=== PATIENT | female | born 1995 ===

== ENCOUNTER 2021-05-03 19:24 | Inpatient (IN) | payer BC ==
[2021-05-03] MEDS ORDERED: Water For Irrigation,Sterile 1,000 ML Container IRR PRN (19:28)
[2021-05-03] MEDS ORDERED: Sodium Chloride 0.9% 10 ML Syringe FLUSH PRN (19:28)
[2021-05-03] MEDS ORDERED: Tranexamic Acid 1,000 MG in Sodium Chloride 0.9% 100 ML IV PRN (19:28)
[2021-05-03] MEDS ORDERED: Methylergonovine 0.2 MG/1 ML Amp IM PRN (19:28)
[2021-05-03] MEDS ORDERED: Sodium Chloride 0.9% 2.5 ML Syringe FLUSH PRN (19:28)
[2021-05-03] MEDS ORDERED: Misoprostol 25 MCG (1/4 of 100 MCG) Tab VAG PRN ×2 (19:28)
[2021-05-03] MEDS ORDERED: Carboprost Tromethamine 250 MCG/1 ML Amp IM PRN (19:28)
[2021-05-03] MEDS ORDERED: Nalbuphine 10 MG/1 ML Vial IVPUSH PRN (19:28)
[2021-05-03] MEDS ORDERED: Misoprostol 200 MCG Tab PO PRN (19:28)
[2021-05-03] MEDS ORDERED: Lidocaine 1% 50 ML MDV INJECT PRN (19:28)
[2021-05-03] MEDS ORDERED: Sodium Chloride 0.9% 10 ML SDV IV PRN (19:28)
[2021-05-03] MEDS ORDERED: Terbutaline 1 MG/ML SDV SUBCUT PRN (19:28)
[2021-05-03] MEDS ORDERED: Oxytocin/0.9 % Sodium Chloride 30 UNIT/500 ML BAG IV SCH ×2 (19:30)
[2021-05-03] MEDS ORDERED: Lactated Ringers 1,000 ML IV SCH (19:30)
--- NOTE | 2021-05-03 19:48 | PCM.LDHP ---
L&D History of Present Illness - General Date of Service: 05/03/21 Admit Problem/Dx: Patient Status Order with Admit Dx/Problem 05/03/21 19:28 Patient Status [ADT] Routine Admission Diagnosis/Problem Admission Diagnosis/Problem 05/03/21 19:43 25 yo presenting to L&D for induction of labor at 41 1/7 weeks (TRAVIS: 04/25/21 by LMP and US). O+, Rubella immune, GBS negative. Upon presentation, SVE noted vertex presentation, 2-3cm/80%/-2. 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: Neurological History: Reports: Migraines - Infectious Disease History Infectious Disease History: Reports: Mononucleosis Social & Family History - Family History OBGYN: Reports: - Caffeine Use Caffeine Use: Reports: Soda Caffeine Use Comment: Less than 4 per week H&P Review of Systems - Review of Systems: Review Of Systems: See Below General: Reports: No Symptoms HEENT: Reports: No Symptoms Pulmonary: Reports: No Symptoms Cardiovascular: Reports: No Symptoms Gastrointestinal: Reports: No Symptoms Genitourinary: Reports: No Symptoms Musculoskeletal: Reports: No Symptoms Skin: Reports: No Symptoms Psychiatric: Reports: No Symptoms Neurological: Reports: No Symptoms Hematologic/Lymphatic: Reports: No Symptoms Immunologic: Reports: No Symptoms L&D Exam - Exam Exam: See Below - OB Specific Movement: Active Heart Tones: Present Heart Rate (FHR) Variability: Moderate (6-25 bpm) Presentation: Vertex - Bobby Score Bobby Score Cervix Position: Midposition Bobby Score Consistency: Soft Bobby Score Effacement: >80% Bobby Score Dilation: 3-4 cm Bobby Score 's Station: -2 Bobby Score Total: 9 - Exam General: Alert, Oriented, Cooperative Lungs: Normal Respiratory Effort Cardiovascular: Regular Rate, Regular Rhythm GI/Abdominal Exam: Soft, Non-Tender Rectal Exam: Deferred Genitourinary: Deferred Back Exam: Normal Inspection, Full Range of Motion Extremities: Normal Inspection, Normal Range of Motion, Non-Tender, Normal Capillary Refill Skin: Warm, Dry, Intact Neurological: Strength Equal Bilateral, Normal Gait, Normal Speech, Normal Tone, Sensation Intact Psychiatric: Alert, Normal Affect, Normal Mood - Problem List (1) Supervision of normal IUP (intrauterine ) in multigravida SNOMED Code(s): 250920382, 739552140, [id number] ICD Code: Z34.90 - ENCNTR FOR SUPRVSN OF NORMAL , UNSP, UNSP TRIMESTER Status: Acute Priority: High Current Visit: No Qualifiers: Trimester: third trimester Qualified Code(s): Z34.83 - Encounter for supervision of other normal , third trimester Problem List Initiated/Reviewed/Updated: Yes Orders Last 24hrs: Active Orders 24 hr Category Date Time Status Patient Status [ADT] Routine ADT 05/03/21 19:28 Active Bedrest Bathroom Privileges [RC] ASDIRECTED Care 05/03/21 19:28 Active Communication Order [RC] ASDIRECTED Care 05/03/21 19:28 Active Communication Order [RC] ASDIRECTED Care 05/03/21 19:28 Active Communication Order [RC] ASDIRECTED Care 05/03/21 19:28 Active Heart Tones [RC] CONTINUOUS Care 05/03/21 19:28 Active Non Stress Test [RC] PER UNIT ROUTINE Care 05/03/21 19:28 Active May Shower [RC] ASDIRECTED Care 05/03/21 19:28 Active Notify Provider [RC] PRN Care 05/03/21 19:28 Active Notify Provider [RC] PRN Care 05/03/21 19:28 Active Notify Provider [RC] PRN Care 05/03/21 19:28 Active Notify Provider [RC] STAT Care 05/03/21 19:28 Active Oxygen Therapy [RC] ASDIRECTED Care 05/03/21 19:28 Active Up ad Amie [RC] ASDIRECTED Care 05/03/21 19:28 Active Vaginal Exam [RC] PRN Care 05/03/21 19:28 Active Vaginal Exam [RC] PRN Care 05/03/21 19:28 Active Vital Signs [RC] PER UNIT ROUTINE Care 05/03/21 19:28 Active CBC W/O DIFF,HEMOGRAM [HEME] Routine Lab 05/03/21 19:28 Ordered RPR (SYPHILIS SERO) W/ RFLX [REF] Routine Lab 05/03/21 19:28 Ordered TYPE AND SCREEN [BBK] Routine Lab 05/03/21 19:28 Ordered Carboprost Tromethamine [Hemabate DS] Med 05/03/21 19:28 Active 250 mcg IM ASDIRECTED PRN Lactated Ringers [Ringers, Lactated] 1,000 ml Med 05/03/21 19:30 Active IV ASDIRECTED Lidocaine 1% [Xylocaine 1%] Med 05/03/21 19:28 Active 50 ml INJECT ONETIME PRN Methylergonovine [Methergine] Med 05/03/21 19:28 Active 0.2 mg IM ASDIRECTED PRN Nalbuphine [Nubain] Med 05/03/21 19:28 Active 10 mg IVPUSH Q1H PRN Oxytocin/0.9 % Sodium Chloride [Oxytocin 30 Unit/500 ML Med 05/03/21 19:30 Active -NS] 30 unit in 500 ml IV TITRATE Oxytocin/0.9 % Sodium Chloride [Oxytocin 30 Unit/500 ML Med 05/03/21 19:30 Active -NS] 30 unit in 500 ml IV TITRATE Sodium Chloride 0.9% [Normal Saline] Med 05/03/21 19:28 Active 10 ml IV ASDIRECTED PRN Sodium Chloride 0.9% [Saline Flush] Med 05/03/21 19:28 Active 10 ml FLUSH ASDIRECTED PRN Sodium Chloride 0.9% [Saline Flush] Med 05/03/21 19:28 Active 2.5 ml FLUSH ASDIRECTED PRN Terbutaline [Brethine] Med 05/03/21 19:28 Active 0.25 mg SUBCUT ASDIRECTED PRN Tranexamic Acid [Cyklokapron] 1,000 mg Med 05/03/21 19:28 Active Sodium Chloride 0.9% [Normal Saline] 100 ml IV ONETIME Water For Irrigation,Sterile [Sterile Water for Med 05/03/21 19:28 Active Irrigation] 1,000 ml IRR ASDIRECTED PRN miSOPROStoL [Cytotec] Med 05/03/21 19:28 Active 200 mcg PO ONETIME PRN miSOPROStoL [Cytotec] Med 05/03/21 19:28 Active 25 mcg VAG ONETIME PRN miSOPROStoL [Cytotec] Med 05/03/21 19:28 Active 25 mcg VAG Q4H PRN Scalp Electrode [WOMSER] Per Unit Routine Ot 05/03/21 19:28 Ordered Medication Administration Instruction [OM.PC] Q3H Ot 05/03/21 19:30 Ordered Peripheral IV Insertion Adult [OM.PC] Routine Ot 05/03/21 19:28 Ordered Resuscitation Status Routine Resus Stat 05/03/21 19:28 Ordered Medication Orders Carboprost Tromethamine (Carboprost Tromethamine 250 Mcg/1 Ml Amp) 250 mcg IM ASDIRECTED PRN PRN Reason: Post Hemorrhage Oxytocin/Sodium Chloride (Oxytocin 30 Unit/500 Ml-Ns) 30 unit in 500 mls @ 999 mls/hr IV TITRATE ELA Tranexamic Acid 1,000 mg/ (Sodium Chloride) 110 mls @ 660 mls/hr IV ONETIME PRN PRN Reason: Bleeding Oxytocin/Sodium Chloride (Oxytocin 30 Unit/500 Ml-Ns) 30 unit in 500 mls @ 2 mls/hr IV TITRATE ELA; Protocol Lactated Ringer's (Ringers, Lactated) 1,000 mls @ 150 mls/hr IV ASDIRECTED ELA Lidocaine HCl (Lidocaine 1% 50 Ml Mdv) 50 ml INJECT ONETIME PRN PRN Reason: Laceration repair Methylergonovine Maleate (Methylergonovine 0.2 Mg/1 Ml Amp) 0.2 mg IM ASDIRECTED PRN PRN Reason: Post Hemorrhage Misoprostol (Misoprostol 200 Mcg Tab) 200 mcg PO ONETIME PRN PRN Reason: Post Hemorrhage Misoprostol (Misoprostol 25 Mcg (1/4 Of 100 Mcg) Tab) 25 mcg VAG ONETIME PRN PRN Reason: Cervical Ripening Misoprostol (Misoprostol 25 Mcg (1/4 Of 100 Mcg) Tab) 25 mcg VAG Q4H PRN PRN Reason: Cervical Ripening Nalbuphine HCl (Nalbuphine 10 Mg/1 Ml Vial) 10 mg IVPUSH Q1H PRN PRN Reason: Pain (severe 7-10) Sodium Chloride (Sodium Chloride 0.9% 10 Ml Syringe) 10 ml FLUSH ASDIRECTED PRN PRN Reason: Keep Vein Open Sodium Chloride (Sodium Chloride 0.9% 2.5 Ml Syringe) 2.5 ml FLUSH ASDIRECTED PRN PRN Reason: Keep Vein Open Sodium Chloride (Sodium Chloride 0.9% 10 Ml Sdv) 10 ml IV ASDIRECTED PRN PRN Reason: IV Use Sterile Water (Water For Irrigation,Sterile 1,000 Ml Container) 1,000 ml IRR ASDIRECTED PRN PRN Reason: delivery Terbutaline Sulfate (Terbutaline 1 Mg/Ml Sdv) 0.25 mg SUBCUT ASDIRECTED PRN PRN Reason: Tacysystole Assessment/Plan Comment:: Admit A: 25 yo presenting to L&D for induction of labor at 41 1/7 weeks (TRAVIS: 04/25/21 by LMP and US). O+, Rubella immune, GBS negative. Upon presentation, SVE noted vertex presentation, 2-3cm/80%/-2. P: Anticipate ; cytotec to pitocin PRN; epidural PRN; Dr. Galeas updated.
[2021-05-03] MEDS ORDERED: Misoprostol 25 MCG (1/4 of 100 MCG) Tab PO ONE (20:47)
[2021-05-03] MEDS ORDERED: Ropivacaine HCl/PF 200 ML ONE (23:23)
[2021-05-03] MEDS ORDERED: Bupivacaine 0.25% 10 ML SDV ONE (23:23)
--- NOTE | 2021-05-04 00:11 | PCM.PREANE ---
Preanesthetic Assessment - Anesthesia/Transfusion/Family Hx Anesthesia History: No Prior Anesthesia Family History of Anesthesia Reaction: No Transfusion History: No Prior Transfusion(s) - Physical Assessment Height: 5 ft 3 in Weight: 170 lb ASA Class: 2 Airway Class: Mallampati = 3 - Lab Values: Laboratory Last Values WBC 11.05 K/uL (4.0-11.0) H 05/03/21 20:50 RBC 3.93 M/uL (4.30-5.90) L 05/03/21 20:50 Hgb 11.0 g/dL (12.0-16.0) L 05/03/21 20:50 Hct 33.4 % (36.0-46.0) L 05/03/21 20:50 MCV 85.0 fL (80.0-98.0) 05/03/21 20:50 MCH 28.0 pg (27.0-32.0) 05/03/21 20:50 MCHC 32.9 g/dL (31.0-37.0) 05/03/21 20:50 RDW Std Deviation 41.3 fl (28.0-62.0) 05/03/21 20:50 RDW Coeff of [place] 13 % (11.0-15.0) 05/03/21 20:50 Plt Count 240 K/uL (150-400) 05/03/21 20:50 MPV 11.10 fL (7.40-12.00) 05/03/21 20:50 Nucleated RBC % 0.0 /100WBC 05/03/21 20:50 Nucleated RBCs # 0 K/uL 05/03/21 20:50 SARS-CoV-2 RNA (ACE) NEGATIVE (NEGATIVE) 05/03/21 20:42 Blood Type O POSITIVE 05/03/21 20:50 Antibody Screen NEGATIVE 05/03/21 20:50 - Allergies Allergies/Adverse Reactions: Allergies Allergy/AdvReac Type Severity Reaction Status Date / Time cranberry Allergy Swelling Verified 05/15/15 01:46 - Blood Blood Available: Yes Product(s) Available: PRBC - Anesthesia Plan Pre-Op Medication Ordered: None - Acknowledgements Anesthesia Type Planned: Epidural Pt an Appropriate Candidate for the Planned Anesthesia: Yes Alternatives and Risks of Anesthesia Discussed w Pt/Guardian: Yes Pt/Guardian Understands and Agrees with Anesthesia Plan: Yes PreAnesthesia Questionnaire - Past Health History Medical/Surgical History: Denies 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: Neurological History: Reports: Migraines - Infectious Disease History Infectious Disease History: Reports: Mononucleosis - SUBSTANCE USE Tobacco Use Status *Q: Never Tobacco User Tobacco Use Within Last Twelve Months: No Second Hand Smoke Exposure: No Recreational Drug Use History: No - CURRENT (IN HOUSE) MEDS Current Meds: Current Medications Carboprost Tromethamine (Carboprost Tromethamine 250 Mcg/1 Ml Amp) 250 mcg IM ASDIRECTED PRN PRN Reason: Post Hemorrhage Oxytocin/Sodium Chloride (Oxytocin 30 Unit/500 Ml-Ns) 30 unit in 500 mls @ 999 mls/hr IV TITRATE ELA Tranexamic Acid 1,000 mg/ (Sodium Chloride) 110 mls @ 660 mls/hr IV ONETIME PRN PRN Reason: Bleeding Oxytocin/Sodium Chloride (Oxytocin 30 Unit/500 Ml-Ns) 30 unit in 500 mls @ 2 mls/hr IV TITRATE ELA; Protocol Lactated Ringer's (Ringers, Lactated) 1,000 mls @ 150 mls/hr IV ASDIRECTED ELA Lidocaine HCl (Lidocaine 1% 50 Ml Mdv) 50 ml INJECT ONETIME PRN PRN Reason: Laceration repair Methylergonovine Maleate (Methylergonovine 0.2 Mg/1 Ml Amp) 0.2 mg IM ASDIRECTED PRN PRN Reason: Post Hemorrhage Misoprostol (Misoprostol 200 Mcg Tab) 200 mcg PO ONETIME PRN PRN Reason: Post Hemorrhage Misoprostol (Misoprostol 25 Mcg (1/4 Of 100 Mcg) Tab) 25 mcg VAG ONETIME PRN PRN Reason: Cervical Ripening Misoprostol (Misoprostol 25 Mcg (1/4 Of 100 Mcg) Tab) 25 mcg VAG Q4H PRN PRN Reason: Cervical Ripening Nalbuphine HCl (Nalbuphine 10 Mg/1 Ml Vial) 10 mg IVPUSH Q1H PRN PRN Reason: Pain (severe 7-10) Sodium Chloride (Sodium Chloride 0.9% 10 Ml Syringe) 10 ml FLUSH ASDIRECTED PRN PRN Reason: Keep Vein Open Sodium Chloride (Sodium Chloride 0.9% 2.5 Ml Syringe) 2.5 ml FLUSH ASDIRECTED PRN PRN Reason: Keep Vein Open Sodium Chloride (Sodium Chloride 0.9% 10 Ml Sdv) 10 ml IV ASDIRECTED PRN PRN Reason: IV Use Sterile Water (Water For Irrigation,Sterile 1,000 Ml Container) 1,000 ml IRR ASDIRECTED PRN PRN Reason: delivery Terbutaline Sulfate (Terbutaline 1 Mg/Ml Sdv) 0.25 mg SUBCUT ASDIRECTED PRN PRN Reason: Tacysystole Discontinued Medications Bupivacaine HCl (Bupivacaine 0.25% 10 Ml Sdv) Confirm Administered Dose 10 ml .ROUTE .STK-MED ONE Stop: 05/03/21 23:24 Ropivacaine (Naropin 0.2%) Confirm Administered Dose 200 mls @ as directed .ROUTE .STK-MED ONE Stop: 05/03/21 23:24 Misoprostol (Misoprostol 25 Mcg (1/4 Of 100 Mcg) Tab) 25 mcg PO ONETIME ONE Stop: 05/03/21 20:48 - Pre-Procedure Checklist Attending Provider Aware: Yes Chart Reviewed: Yes Consent Signed: Yes Labs Reviewed: Yes VS/FHR Reviewed: Yes Patient Identification Confirmation Method: Reports: Verbal Patient Pt an Appropriate Candidate for the Planned Anesthesia: Yes Alternatives and Risks of Anesthesia Discussed w Pt/Guardian: Yes - Procedure Procedure Start Date: 05/03/21 Procedure Start Time: 23:[address]: Reports: Blood Pressure, Heart Rate, SPO2 Functional IV: Yes Safety Measures: Reports: Patient Identified, Procedure Verified, Site Verified, Procedure Time Out Patient Position: Reports: Sitting Prep: Reports: Betadine x3, Sterile Drape Local Anesthetic: Reports: Intradermal Wheal w Lidocaine 1% Regional Placement Level: Reports: L3-4 Needle: Reports: 17 g Touhy Approach: Reports: Midline Technique: Reports: GURJIT Plastic Syringe Parasthesia: Reports: None Fluid Obtained: Reports: None Test Dose Time: 23:44 Test Dose Medication: Reports: Lidocaine 1.5% w Epinephrine 1:200,000 Test Dose Response: Reports: Negative Loading Dose Time: 23:43 Loading Dose Medication: bupivicaine0.25% 10cc Loading Dose Patient Position: sitting Continuous Infusion Start Time: 23:45 Continuous Infusion Medication: ropivicaine 0.2% Continuous Infusion Rate: 16 Continuous Infusion PCS Bolus Option: 4 Continuous Infusion Lockout Dose (cc/hr): 20 Patient Position Post Placement: Reports: Marielena/QUENTIN VS and FHR Monitored in Unit Post Placement: Yes Procedure End Date: 05/04/21 Procedure End Time: 00:33
[2021-05-04] MEDS ORDERED: Benzocaine/Menthol 20%-0.5% Spray 78 GM Cannister TOP PRN (04:03)
[2021-05-04] MEDS ORDERED: Ibuprofen 800 MG Tab PO PRN (04:03)
[2021-05-04] MEDS ORDERED: Witch Hazel Medicated Pads 40/Jar TOP PRN (04:03)
[2021-05-04] MEDS ORDERED: Lanolin 100% Cream 7 GM Tube TOP PRN (04:03)
[2021-05-04] MEDS ORDERED: Acetaminophen 500 MG Tab PO PRN ×2 (04:03)
[2021-05-04] MEDS ORDERED: oxyCODONE 5 MG Tab PO PRN (04:03)
[2021-05-04] MEDS ORDERED: Bisacodyl 10 MG Supp RECTAL PRN (04:03)
[2021-05-04] MEDS ORDERED: Ibuprofen 400 MG Tab PO PRN (04:03)
[2021-05-04] MEDS ORDERED: Docusate Sodium 100 MG Cap PO PRN (04:03)
--- NOTE | 2021-05-04 10:42 | OR ---
SURGEON: Dell Galeas MD DATE OF PROCEDURE: 05/04/2021 Ms. Peguero is para 3-0-0-3. She is 25 years old. She is followed in our clinic jointly by me and our nurse home health aid. She is 41+ weeks. GBS is negative. Her diabetes screen is negative. She had no issue. She is admitted for elective induction. She was induced with Cytotec, and she responded to it. She had epidural anesthesia for labor analgesia. The patient became complete, complete, and she was pushing for 2 hours without any success. I was consulted, and at the time of examination, heart rate was normal, and her vital signs were normal. Pelvic examination showed the patient was vertex, +1, +2, with CHANDLER position. Because of her dense epidural, the patient was unable to push the baby, and after consulting with the parents and explaining the option of vacuum extraction, they consented for it, and a Kiwi vacuum extraction was performed. With 1 pull and the patient pushing, I was able to deliver the fetus, a female. scores were reported to be 8 and 9, and then, the placenta delivered spontaneous, complete, and intact. There was no need for an episiotomy. There was no laceration; perineal, labial, or vaginal; and the estimated blood loss was 250 to 300 mL. heart rate was category I through the entire process of labor. There was no complication in the labor and the delivery. REG / LUCI /[id number]
[2021-05-05 08:08] VITALS: BP 118/75; PULSE 72
--- NOTE | 2021-05-05 09:42 | PCM.DCSUM1 ---
Discharge Summary - Hospital Course Diagnosis: Stroke: No - Discharge Data Discharge Date: 05/05/21 Discharge Disposition: Home, Self-Care 01 Condition: Good - Referral to Home Health Primary Care Physician: PCP None - Patient Instructions Diet: Usual Diet as Tolerated Activity: As Tolerated Driving: Do Not Drive Showering/Bathing: May Shower Notify Provider of: Fever, Increased Pain, Swelling and Redness, Drainage, Nausea and/or Vomiting - Discharge Plan Referrals: Dell Galeas MD [Physician] - 06/13/21 1:30 pm - Discharge Summary/Plan Comment DC Time >30 min.: Yes - General Info Date of Service: 05/05/21 Functional Status: Reports: Pain Controlled - Review of Systems General: Reports: No Symptoms HEENT: Reports: No Symptoms Pulmonary: Reports: No Symptoms Cardiovascular: Reports: No Symptoms Gastrointestinal: Reports: No Symptoms Genitourinary: Reports: No Symptoms Musculoskeletal: Reports: No Symptoms Skin: Reports: No Symptoms Neurological: Reports: No Symptoms Psychiatric: Reports: No Symptoms - Patient Data Vitals - Most Recent: Last Vital Signs Temp 36.1 C 05/05/21 07:45 Pulse 72 05/05/21 07:45 Resp 15 05/05/21 07:45 BP 118/75 05/05/21 07:45 Pulse Ox 96 05/05/21 07:45 Weight - Most Recent: 77.111 kg Lab Results - Last 24 hrs: Laboratory Results - last 24 hr 05/05/21 Range/Units 06:36 Hgb 10.5 L (12.0-16.0) g/dL Hct 32.5 L (36.0-46.0) % Med Orders - Current: Current Medications Acetaminophen (Acetaminophen 500 Mg Tab) 500 mg PO Q4H PRN PRN Reason: Pain (mild 1-3) Acetaminophen (Acetaminophen 500 Mg Tab) 1,000 mg PO Q4H PRN PRN Reason: Pain (mild 1-3) Benzocaine/Menthol (Benzocaine/Menthol 20%-0.5% [place] 78 Gm Cannister) 78 gm TOP ASDIRECTED PRN PRN Reason: Perineal Comfort Measure Bisacodyl (Bisacodyl 10 Mg Supp) 10 mg RECTAL ONETIME PRN PRN Reason: Constipation Docusate Sodium (Docusate Sodium 100 Mg Cap) 100 mg PO Q12H PRN PRN Reason: Constipation Emollient Ointment (Lanolin 100% Cream 7 Gm Tube) 0 gm TOP ASDIRECTED PRN PRN Reason: Sore Nipples Ibuprofen (Ibuprofen 400 Mg Tab) 400 mg PO Q4H PRN PRN Reason: Pain (mild 1-3) Ibuprofen (Ibuprofen 800 Mg Tab) 800 mg PO Q6H PRN PRN Reason: Pain (mild 1-3) Oxycodone HCl (Oxycodone 5 Mg Tab) 5 mg PO Q2H PRN PRN Reason: Pain (severe 7-10) Witch Katerina (Witch Katerina Medicated Pads 40/Jar) 1 pad TOP ASDIRECTED PRN PRN Reason: comfort care Last Admin: 05/04/21 09:22 Dose: 1 container Documented by: Discontinued Medications Bupivacaine HCl (Bupivacaine 0.25% 10 Ml Sdv) Confirm Administered Dose 10 ml .ROUTE .STK-MED ONE Stop: 05/03/21 23:24 Carboprost Tromethamine (Carboprost Tromethamine 250 Mcg/1 Ml Amp) 250 mcg IM ASDIRECTED PRN PRN Reason: Post Hemorrhage Oxytocin/Sodium Chloride (Oxytocin 30 Unit/500 Ml-Ns) 30 unit in 500 mls @ 999 mls/hr IV TITRATE ELA Tranexamic Acid 1,000 mg/ (Sodium Chloride) 110 mls @ 660 mls/hr IV ONETIME PRN PRN Reason: Bleeding Oxytocin/Sodium Chloride (Oxytocin 30 Unit/500 Ml-Ns) 30 unit in 500 mls @ 2 mls/hr IV TITRATE ELA; Protocol Lactated Ringer's (Ringers, Lactated) 1,000 mls @ 150 mls/hr IV ASDIRECTED ELA Ropivacaine (Naropin 0.2%) Confirm Administered Dose 200 mls @ as directed .ROUTE .STSevence-MED ONE Stop: 05/03/21 23:24 Lidocaine HCl (Lidocaine 1% 50 Ml Mdv) 50 ml INJECT ONETIME PRN PRN Reason: Laceration repair Methylergonovine Maleate (Methylergonovine 0.2 Mg/1 Ml Amp) 0.2 mg IM ASDIRECTED PRN PRN Reason: Post Hemorrhage Misoprostol (Misoprostol 200 Mcg Tab) 200 mcg PO ONETIME PRN PRN Reason: Post Hemorrhage Misoprostol (Misoprostol 25 Mcg (10/09 Of 100 Mcg) Tab) 25 mcg VAG ONETIME PRN PRN Reason: Cervical Ripening Misoprostol (Misoprostol 25 Mcg (1/4 Of 100 Mcg) Tab) 25 mcg VAG Q4H PRN PRN Reason: Cervical Ripening Misoprostol (Misoprostol 25 Mcg (1/4 Of 100 Mcg) Tab) 25 mcg PO ONETIME ONE Stop: 05/03/21 20:48 Nalbuphine HCl (Nalbuphine 10 Mg/1 Ml Vial) 10 mg IVPUSH Q1H PRN PRN Reason: Pain (severe 7-10) Sodium Chloride (Sodium Chloride 0.9% 10 Ml Syringe) 10 ml FLUSH ASDIRECTED PRN PRN Reason: Keep Vein Open Sodium Chloride (Sodium Chloride 0.9% 2.5 Ml Syringe) 2.5 ml FLUSH ASDIRECTED PRN PRN Reason: Keep Vein Open Sodium Chloride (Sodium Chloride 0.9% 10 Ml Sdv) 10 ml IV ASDIRECTED PRN PRN Reason: IV Use Sterile Water (Water For Irrigation,Sterile 1,000 Ml Container) 1,000 ml IRR ASDIRECTED PRN PRN Reason: delivery Terbutaline Sulfate (Terbutaline 1 Mg/Ml Sdv) 0.25 mg SUBCUT ASDIRECTED PRN PRN Reason: Tacysystole - Exam General: Reports: Alert, Oriented HEENT: Reports: Pupils Equal, Pupils Reactive, EOMI, Mucous Membr. Moist/[place]: Reports: Supple Lungs: Reports: Clear to Auscultation, Normal Respiratory Effort Cardiovascular: Reports: Regular Rate, Regular Rhythm GI/Abdominal Exam: Normal Bowel Sounds, Soft, Non-Tender, No Organomegaly, No Distention, No Abnormal Bruit, No Mass, Pelvis Stable (Female) Exam: Normal External Exam, Normal Speculum Exam, Normal Bimanual Exam Rectal (Female) Exam: Normal Exam, Normal Rectal Tone Back Exam: Reports: Normal Inspection, Full Range of Motion Extremities: Normal Inspection, Normal Range of Motion, Non-Tender, No Pedal Edema, Normal Capillary Refill Skin: Reports: Warm, Dry, Intact Wound/Incisions: Reports: Healing Well Neurological: Reports: No New Focal Deficit Psy/Mental Status: Reports: Alert, Normal Affect, Normal Mood
== END 2021-05-05 10:15 | disposition home or self-care (01) | DRG 560 ==
LOC: MW.OBCHECK 19:24 → MW.OB 19:24 → MW.OBCHECK 21:00 → OBSVTOIN 05-04 03:43 → MW.OB 05-04 09:47
PROVIDERS: ADMIT Obstetrics & Gynecology; ATTEND Obstetrics & Gynecology
PROC: 10D07Z6 Extraction of Products of Conception, Vacuum, Via Natural or Artificial Opening (ICD-10-PCS; principal; 2021-05-04)
PROC: 3E0P7VZ Introduction of Hormone into Female Reproductive, Via Natural or Artificial Opening (ICD-10-PCS; 2021-05-04)
PROC: 3E0R3BZ Introduction of Anesthetic Agent into Spinal Canal, Percutaneous Approach (ICD-10-PCS; 2021-05-04)
DX: O48.0 Post-term pregnancy (principal); Z37.0 Single live birth; Z3A.41 41 weeks gestation of pregnancy; Z91.048 Other nonmedicinal substance allergy status; Z20.822 Contact with and (suspected) exposure to COVID-19
CPT/HCPCS: 36415; 51701; 51702; 59025; 59409; 85014; 85018; 85027; 86592; 86850; 86900; 86901; A9270-GY; J2795; J3490; U0002